=== PATIENT | male | born 1980 | race Caucasian/White ===

== ENCOUNTER 2019-04-23 10:45 | Emergency (ER) | payer SELFPAY ==
[2019-04-23 10:53] VITALS: BP 121/80; PULSE 67; TEMP 98.2; BMI 31.3
[2019-04-23] MEDS ORDERED: DIPHTH,PERTUSS(ACELL),TET 0.5 ML DISP.SYRIN IM ONE ×3 (11:59→12:04)
[2019-04-23] MEDS ORDERED: diazePAM 5 MG TABLET PO ONE (12:13)
[2019-04-23] MEDS ORDERED: diazePAM 5 MG TABLET ONE (12:14)
--- NOTE | 2019-04-23 12:30 | PDOC ---
History of Present Illness - General Chief Complaint: Injury Stated Complaint: RT LEG INJURY Time Seen by Provider: 04/23/19 11:13 - History of Present Illness Initial Comments: 04/23/19 12:25 38-year-old male without comorbidities not current on tetanus presents for evaluation of a laceration on his right thigh which occurred while working with a sharp knife Past History - Past Medical History Allergies/Adverse Reactions: Allergies Allergy/AdvReac Type Severity Reaction Status Date / Time No Known Allergies Allergy Verified 04/23/19 10:53 COPD: No - Psycho Social/Smoking Cessation Hx Smoking History: Never smoked Hx Alcohol Use: No Drug/Substance Use Hx: No Review of Systems - Review of Systems Musculoskeletal: Yes: See HPI *Physical Exam - Vital Signs Last Vital Signs Temp Pulse Resp BP Pulse Ox 98.2 F 67 14 121/80 99 04/23/19 10:48 04/23/19 10:48 04/23/19 10:48 04/23/19 10:48 04/23/19 10:48 - Physical Exam Comments: 04/23/19 12:25 There is approximately a 3 cm laceration linear on the lateral aspect of the distal thigh on the right leg exposing subcutaneous fat. There are no gross sensorimotor deficits neurovascular intact. ED Treatment Course - Medications Given in the ED: ED Medications Discontinued Medications Generic Name Dose Route Start Last Admin Trade Name Jose Antonio PRN Reason Stop Dose Admin Diazepam 5 mg 04/23/19 12:13 04/23/19 12:19 Valium - PO 04/23/19 12:14 5 mg ONCE ONE Administration Diphtheria/Tetanus/Acell Pertussis 0.5 ml 04/23/19 11:59 04/23/19 12:03 Boostrix - IM 04/23/19 12:00 0.5 ml .ONCE ONE Administration Medical Decision Making - Medical Decision Making 04/23/19 12:26 The wound was anesthetized with 1% lidocaine without epinephrine. Explored to its base in a bloodless field without any identification of foreign body. Copiously irrigated with normal saline. Edges approximated using 3-0 nylon, 5 sutures in a simple interrupted fashion. Dry sterile dressing was placed. Discharge - Discharge Information Problems reviewed: Yes Clinical Impression/Diagnosis: Laceration Condition: Stable Disposition: HOME - Admission No - Follow up/Referral - Patient Discharge Instructions Additional Instructions: Please keep the dressing on for the next 48 hours. After 48 hours you may remove the dressing wash the area with soap and water and leave it open to air. If you must work please cover the area with a dry sterile dressing such as a large Band-Aid. Keep the area open to air as much as possible. Return to the emergency room for any worsening symptoms or concern for infection such as redness, swelling, increasing pain, or drainage. Other than that sutures out in 10 days Tylenol and Motrin as directed for pain. - Post Discharge Activity
== END 2019-04-23 12:45 | disposition home or self-care (01) ==
LOC: JER 10:45 → JERFT 10:45
PROC: 0HQHXZZ Repair Right Upper Leg Skin, External Approach (ICD-10-PCS; principal; 2019-04-23)
PROC: 3E0234Z Introduction of Serum, Toxoid and Vaccine into Muscle, Percutaneous Approach (ICD-10-PCS; 2019-04-23)
DX: S71.111A Laceration without foreign body, right thigh, initial encounter (principal); W26.0XXA Contact with knife, initial encounter; Y93.G1 Activity, food preparation and clean up; Y92.9 Unspecified place or not applicable
CPT/HCPCS: 90715; 99281-25